=== PATIENT | male | born 1980 | race Caucasian/White ===

== ENCOUNTER 2018-12-03 21:40 | Emergency (ER) | payer OTHER, BC ==
[~2018-12-03] VITALS: Ht 180.3 cm; Wt 79.5 kg
[2018-12-03] MEDS ORDERED: CYCLOBENZAPRINE 10 MG TAB PO ONE (22:45)
[2018-12-03] MEDS ORDERED: MOBI4TAB PO (23:27)
[2018-12-03] MEDS ORDERED: CYCL5TAB PO (23:27)
[2018-12-03 23:29] VITALS: BP 141/68
--- NOTE | 2018-12-04 11:29 | REP ---
Clinical: Trauma. Technique: AP, lateral, bilateral oblique and sunrise views right knee . Findings: The osseous structures and joint spaces are intact and normal. There is no evidence for acute fracture or dislocation. No joint effusion is appreciated. Surrounding soft tissues are unremarkable. No subcutaneous emphysema or radiodense foreign body. Impression: Normal examination. No acute fracture or dislocation. Electronically Signed by Santosh Dave MD 12/04/2018 11:20 A
--- NOTE | 2018-12-04 12:01 | REP ---
Clinical: Trauma/injury. Technique: Internal rotation, external rotation, and Y view of the right shoulder. Findings: Angulation to the mid clavicular shaft suggests old injury. The acromioclavicular and glenohumeral joints are intact. No acute fracture or dislocation identified. Surrounding soft tissues are unremarkable. Impression: No obvious acute fracture or dislocation. Electronically Signed by Santosh Dave MD 12/04/2018 11:53 A
== END 2018-12-03 23:33 | disposition home or self-care (01) ==
LOC: M ED 21:40
DX: S46.911A Strain of unspecified muscle, fascia and tendon at shoulder and upper arm level, right arm, initial encounter (principal); S39.012A Strain of muscle, fascia and tendon of lower back, initial encounter; M79.661 Pain in right lower leg; X58.XXXA Exposure to other specified factors, initial encounter; Y92.149 Unspecified place in prison as the place of occurrence of the external cause; Y93.89 Activity, other specified; Y99.0 Civilian activity done for income or pay; Z72.0 Tobacco use